=== PATIENT | male | born 1955 | race Caucasian/White ===

== ENCOUNTER 2017-09-03 07:32 | Emergency (ER) | payer MEDICAID ==
[~2017-09-03] VITALS: Ht 180.3 cm; Wt 81.6 kg
[2017-09-03 07:36] VITALS: BP 109/72
== END 2017-09-03 08:00 | disposition home or self-care (01) ==
LOC: ER 07:34
DX: K12.0 Recurrent oral aphthae (principal); F15.10 Other stimulant abuse, uncomplicated; F10.10 Alcohol abuse, uncomplicated; F17.200 Nicotine dependence, unspecified, uncomplicated
CPT/HCPCS: 99283; A4606; Z7610

== ENCOUNTER 2017-09-10 09:43 | Emergency (ER) | payer MEDICAID ==
[~2017-09-10] VITALS: Ht 180.3 cm; Wt 77.1 kg
[2017-09-10 10:07] VITALS: BP 136/75
== END 2017-09-10 11:57 | disposition home or self-care (01) ==
LOC: ER 09:47
DX: K12.0 Recurrent oral aphthae (principal); M54.30 Sciatica, unspecified side; F17.200 Nicotine dependence, unspecified, uncomplicated
CPT/HCPCS: 99283; A4606; Z7610